=== PATIENT | male | born 1970 | race Caucasian/White ===

== ENCOUNTER 2024-03-06 22:53 | Emergency (ER) | payer OTHER ==
[2024-03-07] MEDS: Ketorolac 30 MG/ML SDV IM ONE (00:08)
[2024-03-07] MEDS: Cephalexin 500 MG Cap PO ONE (00:09)
== END 2024-03-07 01:05 | disposition home or self-care (01) ==
LOC: FB.ED 22:53
DX: S62.522B Displaced fracture of distal phalanx of left thumb, initial encounter for open fracture (principal); Z87.891 Personal history of nicotine dependence; W23.1XXA Caught, crushed, jammed, or pinched between stationary objects, initial encounter
CPT/HCPCS: 73130; 96372; 99000; 99283; A9270; J1885